=== PATIENT | male | born 1980 | race Caucasian/White ===

== ENCOUNTER 2017-02-25 14:24 | Emergency (ER) | payer OTHER ==
[~2017-02-25] VITALS: Ht 167.6 cm; Wt 86.2 kg
[~2017-02-25 14:24] MED LIST: IBUP200C5 PO
--- NOTE | 2017-02-25 15:22 | NUR ---
Pt fell on stairs, striking right elbow about 1 hour [employer], minor to moderate swelling on elbow. ROM limited by pain, distal PMS intact. Ice pack given to pt in lobby. Pt denies CP, SOB, dizziness, n/v, no other complaints, no distress noted.
[2017-02-25] MEDS ORDERED: IBUPROFEN 600 MG TABLET PO ONE (15:30)
--- NOTE | 2017-02-25 15:38 | NUR ---
Patient discharged to home in stable conditon. Written and verbal after care instructions given. Patient verbalizes understanding of instructions. Verbal ACI was given by Dr. High in Serbian then verbal and written ACI was given by myself and translated by Morena PERALTA. Pt's employer is with the patient and stated pt can follow up with work comp clinic. Stressed f/u or return to ER for worsening s/s.
[2017-02-25] MEDS ORDERED: IBUPROFEN 600 MG TABLET ONE (15:51)
== END 2017-02-25 15:40 | disposition home or self-care (01) ==
LOC: ER 14:25
DX: M25.421 Effusion, right elbow (principal)
CPT/HCPCS: 73080; 99284; A4663

== ENCOUNTER 2017-07-06 12:06 | Emergency (ER) | payer SELFPAY ==
[~2017-07-06] VITALS: Ht 172.7 cm; Wt 86.2 kg
--- NOTE | 2017-07-06 13:15 | NUR ---
PT IS IN ROOM #2B. DR FORTUNE EVALUATED THE PT.
[2017-07-06] MEDS ORDERED: LIDOCAINE HCL 1% 20 ML VIAL ONE (13:16)
[2017-07-06] MEDS ORDERED: LIDOCAINE HCL 1% 20 ML VIAL IJ ONE (13:30)
--- NOTE | 2017-07-06 13:40 | NUR ---
I&D PROCEDURE WAS PERFORMED BY DR FORTUNE ON PT'sLEFT 5th DIGIT. PT TOLERATED TO PROCEDURE WITHOUT COMPLICATIONS. GAUZE DRESSING WAS APPLIED ACCORDING TO ER MD ORDERS. PT WAS D/C TO HOME D/C INSTRUCTIONS GIVEN TO THE PT BY DR FORTUNE.
--- NOTE | 2017-07-06 13:54 | NUR ---
PT WAS D/C TO HOME. D/C INSTRUCTIONS GIVEN TO THE PT.
[2017-07-06 13:55] VITALS: BP 141/87
== END 2017-07-06 13:59 | disposition home or self-care (01) ==
LOC: ER 12:06
DX: L03.012 Cellulitis of left finger (principal); L02.512 Cutaneous abscess of left hand; Z79.1 Long term (current) use of non-steroidal anti-inflammatories (NSAID)
CPT/HCPCS: 10060; 99283; A4663; J3490

== ENCOUNTER 2017-07-13 11:05 | Emergency (ER) | payer SELFPAY ==
[~2017-07-13] VITALS: Ht 172.7 cm; Wt 86.2 kg
[2017-07-13] MEDS ORDERED: TDAP DIPH,PERTUSS,TET VAC/PF 0.5 ML DISP.SYRIN IM ONE ×2 (11:15→11:21)
--- NOTE | 2017-07-13 11:28 | NUR ---
PT WAS EVALUATED BY DR POSADA. PT WAS D/C TO HOME. D/C INSTRUCTIONS GIVEN TO THE PT.
[2017-07-13 11:30] VITALS: BP 142/75
== END 2017-07-13 11:31 | disposition home or self-care (01) ==
LOC: ER 11:05
DX: L08.9 Local infection of the skin and subcutaneous tissue, unspecified (principal); Z79.1 Long term (current) use of non-steroidal anti-inflammatories (NSAID)
CPT/HCPCS: 90715; A4663